=== PATIENT | male | born 1970 | race Caucasian/White ===

== ENCOUNTER 2016-05-19 20:34 | Emergency (ER) | payer SELFPAY ==
[2016-05-19] MEDS ORDERED: HYDROCODONE/ACETAMINOPHEN 5-325 MG TABLET PO ONE (20:58)
--- NOTE | 2016-05-19 21:19 | ER Document Report ---
ED Medical Screen (RME) - General Chief Complaint: Shoulder Injury Stated Complaint: LEFT SHOULDER INJURY Mode of Arrival: Ambulatory Information source: Patient Notes: 45 y/o M presents to ED c/o left shoulder pain. Pt reports was practicing [employer] this evening when he fell backwards from kneeling position on padded wrestling mat onto his left shoulder and head. States had very brief loc, denies h/a or vision changes. States main concerns is left shoulder due to pain and deformity. Denies paresthesias or color changes. I have greeted and performed a rapid initial assessment of this patient. A comprehensive ED assessment and evaluation of the patient, analysis of test results and completion of the medical decision making process will be conducted by additional ED providers. TRAVEL OUTSIDE OF THE [place] IN LAST 30 DAYS: No - Related Data Allergies/Adverse Reactions: No Known Allergies Allergy (Unverified 05/19/16 21:08) Past Medical History - Social History Chew tobacco use (# tins/day): No Frequency of alcohol use: None Drug Abuse: None Renal/ Medical History: Denies: Hx Peritoneal Dialysis Physical Exam - Vital signs Vitals: Temp Pulse Resp BP Pulse Ox 97.7 F 91 16 175/107 H 98 05/19/16 20:54 05/19/16 20:54 05/19/16 20:54 05/19/16 20:54 05/19/16 20:54 - General General appearance: Alert In distress: None - Cardiovascular Pulses: Normal: Radial Normal capillary refill: Yes - Extremities Shoulder: Tender, Deformity, Limited ROM Course - Vital Signs Vital signs: Temp Pulse Resp BP Pulse Ox 97.7 F 91 16 175/107 H 98 05/19/16 20:54 05/19/16 20:54 05/19/16 20:54 05/19/16 20:54 05/19/16 20:54
[2016-05-19 22:18] VITALS: BP 180/113
--- NOTE | 2016-05-19 22:27 | ER Document Report ---
ED General - General Chief Complaint: Shoulder Injury Stated Complaint: LEFT SHOULDER INJURY Mode of Arrival: Ambulatory Notes: Patient's 45-year-old male presents with complaint of pain in left shoulder. He was at [facility]. He has someone in the child cold when he slipped else he fell backwards. After that he started swelling over the AC joint of his left shoulder. He denies any other injuries or complaints. No weakness or numbness into his left hand. TRAVEL OUTSIDE OF THE [place] IN LAST 30 DAYS: No - Related Data Allergies/Adverse Reactions: No Known Allergies Allergy (Unverified 05/19/16 21:08) Past Medical History - General Information source: Patient - Social History Smoking Status: Never Smoker Chew tobacco use (# tins/day): No Frequency of alcohol use: None Drug Abuse: None Family History: Reviewed & Not Pertinent Patient has suicidal ideation: No Patient has homicidal ideation: No Renal/ Medical History: Denies: Hx Peritoneal Dialysis Review of Systems - Review of Systems Notes: My Normal Review Basic REVIEW OF SYSTEMS: CONSTITUTIONAL : Denies fever, chills, or sweats. Denies recent illness. MUSCULOSKELETAL: Left shoulder pain SKIN: Denies rash or skin lesions. NEUROLOGICAL: Denies altered mental status or loss of consciousness. Denies headache. Denies weakness or paralysis or loss of use of either side. Denies problems with gait or speech. Denies sensory or motor loss. ALL OTHER SYSTEMS REVIEWED AND NEGATIVE. Physical Exam - Vital signs Vitals: Temp Pulse Resp BP Pulse Ox 97.7 F 91 16 175/107 H 98 05/19/16 20:54 05/19/16 20:54 05/19/16 20:54 05/19/16 20:54 05/19/16 20:54 - Notes Notes: General Appearance: Well nourished, alert, cooperative, no acute distress, no obvious discomfort. Vitals: reviewed, See vital signs table. Extremities: strength 5/5 in all extremities, good pulses in all extremities, patient has obvious deformity over the acromion clavicular joint suggesting before meals separation. Remainder of shoulder is normal appearing. Some pain with range of motion of left shoulder. Patient is good strength in left hand. Good distal sensation., no edema. Skin: warm, dry, appropriate color, no rash Neuro: speech clear, oriented x 3, normal affect, responds appropriately to questions. Course - Vital Signs Vital signs: Temp Pulse Resp BP Pulse Ox 97.8 F 73 16 180/113 H 96 05/19/16 22:16 05/19/16 22:16 05/19/16 20:54 05/19/16 22:16 05/19/16 22:16 - Transfer of Care Notes: 05/20/16 06:48 Patient is appears to be before meals separation on x-ray as well as on physical exam. I will place him in a sling. Follow-up with orthopedics. I encouraged him to return to ER if he has worsening pain, increased swelling, or feels unwell. Patient encouraged to not do any heavy lifting or exertional activities that involve his left shoulder. Patient agrees with plan will be discharged home. Patient still encouraged occasionally put his shoulder through some range of motion to help prevent adhesive capsulitis. Dictation of this chart was performed using voice recognition software; therefore, there may be some unintended grammatical errors. Discharge - Discharge Clinical Impression: Acromioclavicular joint injury Qualifiers: Encounter type: initial encounter Laterality: left Qualified Code(s): S49.92XA - Unspecified injury of left shoulder and upper arm, initial encounter Condition: Good Disposition: HOME, SELF-CARE Additional Instructions: Oral Narcotic Medication You have been given a prescription for pain control. This medication is a narcotic. It's best taken with food, as nausea can result if taken on an empty stomach. Don't operate machinery or drive within six hours of taking this medication. Do not combine this medicine with alcohol, or with any medication which can cause sedation (such as cold tablets or sleeping pills) unless you get permission from the physician. Narcotics tend to cause constipation. If possible, drink plenty of fluids and eat a diet high in fiber and fruits. Please follow-up with orthopedic clinic in 3-5 days for reevaluation. Please continue to wear the sling. It is recommended to occasionally put the shoulder through range of motion. Do not put through extremes of range of motion however you still want to move it some so it does not become a frozen shoulder. Please do not drive when taking the pain medicine. Do not do any heavy lifting. Do not do jujitsu until cleared by the orthopedist. Prescriptions: Hydrocodone/Acetaminophen [[place] 5-325 mg Tablet] 1 tab PO Q4 PRN #16 tablet PRN Reason: For Breakthrough Pain Referrals: VIKRAM RAY MD [ACTIVE STAFF] - Follow up in 3-5 days
== END 2016-05-19 22:48 | disposition home or self-care (01) ==
LOC: ER 20:34
DX: S49.92XA Unspecified injury of left shoulder and upper arm, initial encounter (principal); W01.0XXA Fall on same level from slipping, tripping and stumbling without subsequent striking against object, initial encounter; Y93.75 Activity, martial arts; Y92.39 Other specified sports and athletic area as the place of occurrence of the external cause; Y99.8 Other external cause status
CPT/HCPCS: 99283; 73030; L3650